=== PATIENT | female | born 1960 | race Caucasian/White ===

== ENCOUNTER 2017-04-28 14:39 | Emergency (ER) | payer BC ==
[2009-10-16 21:14] VITALS: BMI 33.6
[2017-04-28 15:13] LABS: BASOPHILS 0.3 % (0-2); EOSINOPHILS 3.1 % (0-7); HEMOGLOBIN 13.7 g/dL (12-16); IMMATURE GRANULOCYTES 0.2 % (0-5); LYMPHOCYTES 29.8 % (15-50); MCH 30.9 pg (26.0-34.0); MCHC 34.3 g/dL (31.0-37.0); MCV 90.3 fL (80.0-100.0); MEAN PLATELET VOLUME 10.8 fL (7.4-10.4); MONOCYTES 6.4 % (2-11); NEUTROPHILS 60.2 % (40-80); PLATELET COUNT 248 10x3/uL (130-400); RBC 4.43 10x6/uL (4.00-5.40); RDW 12.3 % (11.5-14.5); WBC 6.1 10x3/uL (4.8-10.8)
[2017-04-28 15:27] LABS: ALKALINE PHOSPHATASE 78 U/L (46-116); ALT (SGPT) 21 U/L (10-68); BILIRUBIN - TOTAL 0.59 mg/dL (0.2-1.3); CALC OSMOLALITY 272 mosm/kg (275-300); CALCIUM 9.2 mg/dL (8.5-10.1); CARBON DIOXIDE 25.6 mmol/L (21.0-32.0); CHLORIDE - SERUM 101 mmol/L (98-107); CREATININE - SERUM 0.8 mg/dL (0.6-1.3); GLUCOSE 96 mg/dL (74-106); POTASSIUM - SERUM 4.5 mmol/L (3.5-5.1); PROTEIN - SERUM 7.5 g/dL (6.4-8.2); SODIUM 137 mmol/L (136-145); UREA NITROGEN 9 mg/dL (7-18); eGFR NON AFRICAN AMERICAN 78 mL/min (90-120)
[2017-04-28 15:38] LABS: CKMB 1.4 U/L (0.0-3.6); CREATINE KINASE 153 UL (21-215); TROPONIN-I < 0.017 ng/mL (0.000-0.060)
== END 2017-04-28 19:00 | disposition home or self-care (01) ==
LOC: D.ER 14:39
PROVIDERS: Emergency Medicine
DX: R07.9 Chest pain, unspecified (principal); I10 Essential (primary) hypertension